=== PATIENT | female | born 1965 | race Two or more races ===

== ENCOUNTER 2024-08-13 15:04 | Emergency (ER) | payer OTHER ==
[~2024-08-13] VITALS: Ht 167.6 cm; Wt 75.0 kg
--- NOTE | 2024-08-13 16:14 | ECG ---
[facility] Test Date: 2024-08-13 Test Time: 16:12:33 Pat Name: YURY LAUGHLIN Department: ER Room: Gender: F Sales Development Associate: SHILPI : 1965 Requested By: JINA GALLARDO Order Number: [id number] Reading MD: Elvis Francis Measurements Intervals [place] Rate: 92 P: 80 MD: 135 QRS: 71 QRSD: 78 T: 64 QT: 331 QTc: 410 Interpretive Statements Sinus rhythm Probable left atrial enlargement Probable left ventricular hypertrophy Electronically Signed On 08-13-2024 17:56:13 PST by Elvis Francis Please click the below link to view image of tracing.
[2024-08-13 16:17] LABS: Basophils # (auto) 0 10 ^3/uL (0-0.2); Basophils % (auto) 0.2 % (0.0-2.0); Eosinophils # (auto) 0 10 ^3/uL (0-0.8); Eosinophils % (auto) 0.8 % (0.0-7.0); Hematocrit 41.6 % (36.0-46.0); Hemoglobin 13.9 g/dL (12.2-16.2); Lymphocytes # (auto) 1.1 10 ^3/uL (0.4-5.4); Lymphocytes % (auto) 18.2 % (10.0-50.0); Mean Corpuscular Hemoglobin 29.4 pg (28.0-32.0); Mean Corpuscular Hgb Conc. 33.3 g/dL (32.0-36.0); Mean Corpuscular Volume 88.2 fL (80.0-100.0); Monocytes # (auto) 0.4 10 ^3/uL (0-1.3); Monocytes % (auto) 7.3 % (0.0-12.0); Neutrophils # (auto) 4.4 10 ^3/uL (1.6-8.6); Neutrophils % (auto) 73.5 % (37.0-80.0); Nucleated Red Blood Cells % 0.2 %; Platelet Count (auto) 323 10^3/uL (140-450); Red Blood Cells 4.72 10^6/uL (4.0-5.20); Red Cell Distribution Width 15.2 % (11.8-14.3)
[2024-08-13 16:21] LABS: Alanine Aminotransferase 30 U/L (7-40); Albumin 4.4 g/dL (3.2-4.8); Alkaline Phosphatase 84 U/L (46-116); Anion Gap 9 (5-15); Aspartate Aminotransferase 21 U/L (13-40); BUN/Creatinine Ratio 16.5 (10.0-20.0); Blood Urea Nitrogen 14 mg/dL (9-23); Calcium 9.6 mg/dL (8.7-10.4); Carbon Dioxide 24 mmol/L (20-31); Chloride 106 mmol/L (98-107); Sodium 139 mmol/L (136-145); Total Protein 7.3 g/dL (5.7-8.2)
[2024-08-13 16:27] LABS: Bilirubin, Total 0.3 mg/dL (0.2-1.0); Glucose 165 mg/dL (74-106)
--- NOTE | 2024-08-13 17:18 | DVH ---
CHEST RADIOGRAPH Indication: palpitations Technique: Single frontal view of the chest was obtained COMPARISON: None FINDINGS: Lines and Tubes: None Lungs: Clear Pleura: No effusion. No pneumothorax. Cardiomediastinal contours: Unremarkable Bones: Unremarkable IMPRESSION: 1. No acute disease.
--- NOTE | 2024-08-13 18:36 | ED.PDOC ---
History of Present Illness HPI Comments 59 y/o F presents iwth c/o palpitations for 1x day, today. Patient endorses on coming from [facility] urgent care facility, today, for further workup. Patient comments on having her "heart beating fast" sensation. Patient reports no recent stressors, strenuous activities, or any additional relevant or pertinent Hx. She denies any chest pain, shortness of breath, nausea, vomiting, fever, chills, or other associated symptoms or modifiers at this time. 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 Family History Family History: Unknown Social History Smoker: Non-Smoker Alcohol: Denies ETOH Use Drugs: Denies Drug Use Lives In: Home Cardiovascular: reports: palpitations All Other Systems: Reviewed and Negative (negative unless otherwise stated above or in HPI) Physical Exam General Appearance: No Apparent Distress HEENT: Normal ENT Inspection Neck: Full Range of Motion, Normal Inspection Respiratory: Chest Non-Tender, Lungs Clear, No Accessory Muscle Use, No Respiratory Distress, Normal Breath Sounds Cardiovascular: No Edema, No JVD, Normal Peripheral Pulses Breast Exam: Deferred Gastrointestinal: No Organomegaly, Non Tender, No Pulsatile Mass, Soft Genitalia: Deferred Pelvic: Deferred Rectal: Deferred Extremities: No calf tenderness, Normal capillary refill, Normal inspection, Non-tender Musculoskeletal : Apperance: Normal Neurologic: Alert, No Motor Deficits, Normal Affect, Normal Mood Cerebellar Function: NOT DONE Reflexes: NOT DONE Skin: Dry, Normal Color, Warm Lymphatic: No Adenopathy Was a procedure done? Was a procedure done?: No EKG EKG : Pulse Rate (adult): 92 [place]: Normal Cardiac Rhythm: NSR Block: None Hypertrophy: None ST: Normal Differential Dx Considerations may include: arrhythmia, tachycardia, electrolyte imbalance, dehydration X-Ray, Labs, Meds, VS Vital Signs Date Time Temp Pulse Resp B/P (MAP) Pulse Ox O2 Delivery O2 Flow Rate FiO2 08/13/24 18:36 92 08/13/24 16:12 92 08/13/24 15:18 99.6 104 18 161/111 (128) 99 08/13/24 15:09 102 Lab Test 08/13/24 18:25 08/13/24 16:47 08/13/24 15:38 Range/Units Troponin I High Sensitivity 111 *H 91 *H 70 *H </=34 ng/L White Blood Count 6.0 4.4-10.8 10^3/uL Red Blood Count 4.72 4.0-5.20 10^6/uL Hemoglobin 13.9 12.2-16.2 g/dL Hematocrit 41.6 36.0-46.0 % Mean Corpuscular Volume 88.2 80.0-100.0 fL Mean Corpuscular Hemoglobin 29.4 28.0-32.0 pg Mean Corpuscular Hemoglobin Concent 33.3 32.0-36.0 g/dL Red Cell Distribution Width 15.2 H 11.8-14.3 % Platelet Count 323 140-450 10^3/uL Mean Platelet Volume 7.2 6.9-10.8 fL Neutrophils (%) (Auto) 73.5 37.0-80.0 % Lymphocytes (%) (Auto) 18.2 10.0-50.0 % Monocytes (%) (Auto) 7.3 0.0-12.0 % Eosinophils (%) (Auto) 0.8 0.0-7.0 % Basophils (%) (Auto) 0.2 0.0-2.0 % Neutrophils # (Auto) 4.4 1.6-8.6 10 ^3/uL Lymphocytes # (Auto) 1.1 0.4-5.4 10 ^3/uL Monocytes # (Auto) 0.4 0-1.3 10 ^3/uL Eosinophils # (Auto) 0 0-0.8 10 ^3/uL Basophils # (Auto) 0 0-0.2 10 ^3/uL Nucleated Red Blood Cells 0.2 % Sodium Level 139 136-145 mmol/L Potassium Level 4.0 3.5-5.1 mmol/L Chloride Level 106 98-107 mmol/L Carbon Dioxide Level 24 20-31 mmol/L Anion Gap 9 5-15 Blood Urea Nitrogen 14 9-23 mg/dL Creatinine 0.85 0.550-1.02 mg/dL Glomerular Filtration Rate Calc 79 >90 mL/min BUN/Creatinine Ratio 16.5 10.0-20.0 Serum Glucose 165 H 74-106 mg/dL Calcium Level 9.6 8.7-10.4 mg/dL Total Bilirubin 0.3 0.2-1.0 mg/dL Aspartate Amino Transferase (AST) 21 13-40 U/L Alanine Aminotransferase (ALT) 30 7-40 U/L Alkaline Phosphatase 84 46-116 U/L Total Protein 7.3 5.7-8.2 g/dL Albumin 4.4 3.2-4.8 g/dL [facility] [id number] [place] [address] Ph: [phone] DIAGNOSTIC IMAGING Diagnostic Imaging Report : [id number] Signed PATIENT: YURY LAUGHLIN ACCT: [id number] UNIT: [id number] : 1965 LOC: ER ROOM / BED: / AGE / SEX: 59 / F ADM STATUS: REG ER SERVICE [id number] ORDERING PHYSICIAN: JINA JHAVERI MD PROCEDURE(s): CXRP - CHEST PORTABLE REASON: palpitations ORDER NUMBER(s): [id number], ACCESSION NUMBER(s): [id number] CHEST RADIOGRAPH Indication: palpitations Technique: Single frontal view of the chest was obtained COMPARISON: None FINDINGS: Lines and Tubes: None Lungs: Clear Pleura: No effusion. No pneumothorax. Cardiomediastinal contours: Unremarkable Bones: Unremarkable IMPRESSION: 1. No acute disease. ATED BY: ROSARIO LYN MD DICTATED DATE/TIME: 08/13/241714 SIGNED BY: ROSARIO LYN MD SIGNED DATE/TIME: 08/13/241714 CC: Time of 1ST Reevaluation: 16:00 Reevaluation 1ST: Unchanged Patient Education/Counseling: Diagnosis, Treatment Family Education/Counseling: No Family Present Departure 1 Departure Time of Disposition: 20:27 (Patient presented with chest pain that was concerning for possible STEMI, ACS, PE, Pneumonia, Muscle Strain, COPD, Dissec tion. Data: 1. I ordered and reviewed the result of at least 3 labs including a CBC, BMP, and Troponin. 2. I independently interpreted the following tests: EKG which shows sinus arrhythmia and Chest X-ray which shows benign chest.Risk:This patient has a high risk of morbidity due to further diagnostic testing or treatment and may suffer from an acute cardiac or respiratory disorder. Workup reveals concern for ACS and patient should be admitted for further workup and possible expert consultation. ) Impression: Primary Impression: Acute chest pain Additional Impressions: Elevated troponin Palpitations Disposition: ADMITTED INPATIENT Admit to: Med Surg Condition: Serious Critical Care Note Critical Care Time?: Yes Critical care comment: Acute chest pain Authorized and Performed by: Jina Jhaveri MD Total critical care time: Approximately 43 minutes Due to a high probability of clinically significant, life threatening deterioration, the patient required my highest level of preparedness to intervene emergently and I personally spent this critical care time directly and personally managing the patient. This critical care time included obtaining a history; examining the patient; pulse oximetry; ordering and review of studies; arranging urgent treatment with development of a management plan; evaluation of patient's response to treatment; frequent reassessment; and, discussions with other providers. This critical care time was performed to assess and manage the high probability of imminent, life-threatening deterioration that could result in multi-organ failure. It was exclusive of separately billable procedures and treating other patients and teaching time. Please see my other sections and the rest of the note for further information on patient assessment and treatment. Stability Stability form required: No Heart Score Heart Score: Heart Score Response (Comments) Value History Slightly Suspicious 0 EKG Normal 0 Age N/A 0 Risk Factors N/A 0 Troponin N/A 0 Total 0 I personally scribed for JINA JHAVERI MD ([email or web address]) on 08/13/24 at 18:36. Electronically submitted by Lorenzo Dutton ([email or web address]). JINA JHAVERI MD Aug 13, 2024 18:36
[2024-08-14 00:04] VITALS: PULSE 89; RESP 11; O2SAT 96
[2024-08-14 03:25] VITALS: BP 118/56; PULSE 78; RESP 21; TEMP 98.4; O2SAT 95
== END 2024-08-14 03:39 | disposition short-term general hospital (02) ==
LOC: EDBD 15:04 → ER 15:04
DX: R07.89 Other chest pain (principal); R79.89 Other specified abnormal findings of blood chemistry; R00.2 Palpitations
CPT/HCPCS: 36415; 71045; 80053; 84484; 85025; 93005